=== PATIENT | female | born 1970 | race Caucasian/White ===

== ENCOUNTER → 2019-09-08 | Day surgery (SDC) | payer BC ==
[~2019-09-08] MED LIST: FENTANYL CITRATE/PF 100MCG/2 ML INJ ONE; LIDOCAINE HCL 2% LOCAL INJ 5 ML SDV VIAL INJ ONE; LOSARTAN POTAS100 MG PO; METFORMIN HCL500 M2 PO; MIDAZOLAM HCL 2 MG/2 ML VIAL ONE; OMEPRAZOLE40 MG PO; PROPOFOL IV EMULSION 10 MG/ML 50 ML VIAL ONE
[2019-09-08 08:30] VITALS: BP 146/98
--- NOTE | 2019-09-08 11:54 | Operative Report ---
DATE OF PROCEDURE: 09/08/2019 SURGEON: Margarito Floyd MD PROCEDURE: EGD with biopsies. INDICATIONS FOR PROCEDURE: Heartburn and bloating. MEDICATIONS: The patient was done under MAC please see anesthesiologist's note. PROCEDURE IN DETAIL: With the patient in left lateral decubitus position, a flexible fiberoptic Olympus gastroscope was introduced into the esophagus under direct visualization without any difficulty. There was some patchy erythema noted in distal esophagus. The scope was then advanced with ease into the stomach and large amount of retained undigested food was noted in the stomach, precluding visualization of the fundus, and the proximal two-thirds of the body. The mucosa overlying the antrum revealed some diffuse erythema and low-grade edema, and biopsies were obtained and sent to stain for H pylori. The pylorus was of normal contour and shape, and erosion was noted in the duodenal bulb without active bleeding. The scope was then advanced into the second portion of the duodenum and biopsies were obtained from the second portion and duodenal bulb to rule out sprue. The scope was then withdrawn back into the stomach and retroflexed and the fundus and cardia could not be visualized due to the retained undigested food stuff. The scope was then straightened out, it was subsequently withdrawn, the patient tolerated the procedure well. IMPRESSION: 1. Distal esophagitis. 2. Large amount of retained undigested food stuff in the stomach, precluding visualization of fundus and proximal two-thirds of body. 3. Gastritis, antrum biopsied. 4. Erosive duodenitis repeat. 5. Erosive bulbar duodenitis. 6. Rule out sprue. PLAN: Follow up histology. Initiate Protonix 40 mg one p.o. q.a.m. a.c. The patient will need repeat EGD with clear lunch and supper the day prior to optimize endoscopic visualization of the stomach. Margarito Floyd MD [facility] – [place], [place] /[id number] cc: Reynaldo Mckeon DO
== END | disposition home or self-care (01) ==
LOC: OR 05:55
PROVIDERS: ATTEND Internal Medicine Gastroenterology
DX: A04.8 Other specified bacterial intestinal infections (principal); K29.50 Unspecified chronic gastritis without bleeding; K29.80 Duodenitis without bleeding; K20.9 Esophagitis, unspecified; K31.89 Other diseases of stomach and duodenum; E11.9 Type 2 diabetes mellitus without complications; I10 Essential (primary) hypertension; N20.0 Calculus of kidney; K21.9 Gastro-esophageal reflux disease without esophagitis; F32.9 Major depressive disorder, single episode, unspecified; F41.9 Anxiety disorder, unspecified; F17.210 Nicotine dependence, cigarettes, uncomplicated; Z88.0 Allergy status to penicillin; Z88.2 Allergy status to sulfonamides; Z01.810 Encounter for preprocedural cardiovascular examination; Z79.84 Long term (current) use of oral hypoglycemic drugs
CPT/HCPCS: 36415; 43239; 82948; 93005; J2001; J2250; J2704; J3010

== ENCOUNTER 2025-02-05 13:34 | Emergency (ER) | payer BC ==
[~2025-02-05] VITALS: Ht 175.3 cm; Wt 66.7 kg
[~2025-02-05 13:34] MED LIST changes: -FENTANYL CITRATE/PF 100MCG/2 ML INJ ONE; -LIDOCAINE HCL 2% LOCAL INJ 5 ML SDV VIAL INJ ONE; -MIDAZOLAM HCL 2 MG/2 ML VIAL ONE; -PROPOFOL IV EMULSION 10 MG/ML 50 ML VIAL ONE; +ULTRAM 50MG50 MG PO
[2025-02-05 13:39] VITALS: TEMP 98.3
[2025-02-05] MEDS ORDERED: PRAVASTATIN SOD20 MG (13:57)
[2025-02-05] MEDS ORDERED: NEURONTIN300 MG PO (13:57)
[2025-02-05] MEDS ORDERED: INSULIN LI100 UNIT/1 SQ ×2 (13:57)
[2025-02-05] MEDS ORDERED: LANTUS 3ML100 UNITS/ (13:57)
[2025-02-05] MEDS ORDERED: SODIUM CHLORIDE 0.9% 500ML 500 ML ONE (14:20)
[2025-02-05] MEDS: Morphine 4mg INJECTION 4 MG/ML INJ IV ONE ×2 (14:28→20:38)
[2025-02-05] MEDS: ONDANSETRON HCL INJ 2MG/ML 2ML 2 MG/ML VIAL IV STA (14:28)
[2025-02-05] MEDS: SODIUM CHLORIDE 0.9% 1000ML 500 ML IV ONE (14:28)
[2025-02-05] MEDS ORDERED: IOPAMIDOL 370 MG/ML 100 ML INFUS..BTL INJ ONE (14:54)
[2025-02-05] MEDS ORDERED: SODIUM CHLORIDE 0.9% 100 ML ONE (14:54)
[2025-02-05] MEDS: KETOROLAC TROMETHAMINE 30 MG/ML VIAL IV STA (17:48)
[2025-02-05 21:40] VITALS: PULSE 83; RESP 20
[2025-02-05 21:50] VITALS: BP 158/84; PULSE 83; RESP 20; O2SAT 99
== END 2025-02-05 22:00 | disposition other institution (70) ==
LOC: FSED 13:39
DX: R10.33 Periumbilical pain (principal); I77.1 Stricture of artery; R91.8 Other nonspecific abnormal finding of lung field; N20.0 Calculus of kidney
CPT/HCPCS: 36415; 71275; 74174; 80048; 81003; 82948; 84484; 85025; 93005; 96374; 96375; 99284; J1885; J2270; J2405; J7040; J7050; Q9967